=== PATIENT | male | born 1940 | race Caucasian/White ===

== ENCOUNTER → 2018-02-04 | Outpatient (CLI) | payer OTHER ==
[~2018-02-04] MED LIST: ACC10 PO; CRG25 PO; HYDC25 PO; NAPR1TAB9 PO; NXM/40 PO
--- NOTE | 2018-02-04 13:00 | DIAGNOSTIC IMAGING REPORT ---
BONE SCAN 3 PHASE LIMITED CLINICAL HISTORY: Pain and swelling status post total knee arthroplasty. COMPARISON STUDY: Left knee radiographs July 06, 2009. TECHNIQUE: 26.2 mCi of technetium 99m MDP was injected IV at 8:42 AM on February 04, 2018. Immediately following injection, blood flow images were obtained. Blood pool images were then obtained followed by 3 delayed phase imaging in multiple projections. FINDINGS: Slight asymmetric radiotracer uptake is noted adjacent to the left knee arthroplasty on the blood flow images with moderate asymmetric uptake on the blood pool images. Delayed phase images demonstrate moderate uptake along the proximal aspect of the tibial component of the left knee arthroplasty. Mild uptake is noted adjacent to the distal left femur and tibia. No additional sites of abnormal radiotracer uptake are noted. IMPRESSION: Abnormal 3 phase bone scan with evidence for slight hyperemia adjacent to the left knee arthroplasty with moderate uptake along the tibial component and mild uptake along the femoral component. Scintigraphic findings raise the possibility of loosening. An infectious process is within the differential although considered less likely given the slight degree of hyperemia. Electronically signed by: Alejandro Anderson M.D. 02/04/2018 12:58 PM Dictated Date/Time: 02/04/2018 12:54 PM
== END | disposition home or self-care (01) ==
LOC: C.NUCL 08:10
DX: Z96.659 Presence of unspecified artificial knee joint (principal); R93.7 Abnormal findings on diagnostic imaging of other parts of musculoskeletal system

== ENCOUNTER → 2018-02-08 | Outpatient (CLI) | payer OTHER ==
[2018-02-08 12:06] LABS: BASO % 0.4 %; BASO ABS # 0.03 K/uL (0-0.2); EOS % 4.1 %; HEMATOCRIT 37.4 % (42-52); HEMOGLOBIN 13.2 g/dL (14.0-18.0); IG# 0.01 K/uL (0.00-0.02); LYMPH % 21.9 %; LYMPH ABS # 1.59 K/uL (1.2-3.4); MEAN CELL VOLUME 91.7 fL (80-100); MEAN CORPUSCULAR HEMOGLOBIN 32.4 pg (25-34); MEAN CORPUSCULAR HGB CONC 35.3 g/dl (32-36); MEAN PLATELET VOLUME 9.6 fL (7.4-10.4); MONO % 9.1 %; MONO ABS # 0.66 K/uL (0.11-0.59); NEUT % 64.4 %; NEUT ABS # 4.67 K/uL (1.4-6.5); PLATELET COUNT 180 K/uL (130-400); RED CELL DISTRIBUTION WIDTH CV 13.2 % (11.5-14.5); RED CELL DISTRIBUTION WIDTH SD 44.6 fL (36.4-46.3); WHITE BLOOD COUNT 7.26 K/uL (4.8-10.8)
== END | disposition home or self-care (01) ==
LOC: C.LAB 11:31
DX: Z96.652 Presence of left artificial knee joint (principal)

== ENCOUNTER 2019-05-20 11:03 | Inpatient (IN) ==
[2019-05-20 12:05] LABS: Basophils # (auto) 0.02 K/uL (0-0.2); Basophils % (auto) 0.1 %; Hematocrit (blood only) 40.1 % (42-52); Immature Granulocytes # (auto) 0.06 K/uL (0.00-0.02); Immature Granulocytes % (auto) 0.3 %; Lymphocytes # (auto) 1.41 K/uL (1.2-3.4); Lymphocytes % (auto) 6.4 %; Mean Corpuscular Hemoglobin 32.6 pg (25-34); Mean Corpuscular Hgb Conc 34.9 g/dL (32-36); Mean Corpuscular Volume 93.5 fL (80-100); Mean Platelet Volume 9.4 fL (7.4-10.4); Monocytes # (auto) 1.84 K/uL (0.11-0.59); Monocytes % (auto) 8.4 %; Neutrophils # (auto) 18.66 K/uL (1.4-6.5); Neutrophils % (auto) 84.8 %; Platelet Count 164 K/uL (130-400); RDW Standard Deviation 47.8 fL (36.4-46.3); Red Blood Count 4.29 M/uL (4.7-6.1); White Blood Count 21.99 K/uL (4.8-10.8)
[2019-05-20] MEDS ORDERED: cefTRIAXone SODIUM 1,000 MG/50 ML BAG IV STA (12:11)
[2019-05-20] MEDS ORDERED: SODIUM CHLORIDE 0.9% 1000ML 1,000 ML IV ONE (12:11)
[2019-05-20 12:13] LABS: Albumin Level 3.6 gm/dl (3.4-5.0); BUN Creatinine Ratio 15.7 (10-20); Calcium 9.2 mg/dl (8.5-10.1); Creatinine Clr Calc Pharmacy 41.1 ml/min; Est GFR (African American) 54.4; Est GFR (Non-African American) 46.9; Potassium 3.3 mmol/L (3.5-5.1)
[2019-05-20 12:16] LABS: Albumin Globulin Ratio 0.9 (0.9-2); Bilirubin,Total 1.7 mg/dl (0.2-1); Total Protein 7.6 gm/dl (6.4-8.2)
[2019-05-20] MEDS ORDERED: IOVERSOL 100ml IV PRN (12:20)
--- NOTE | 2019-05-20 12:42 | CT Scan Report ---
CT abd pelvis IV con only CLINICAL HISTORY: lower abd pain COMPARISON STUDY: None. TECHNIQUE: The patient was scanned in a dynamic helical fashion during intravenous administration of 93 cc of Optiray 320. A dose lowering technique was utilized adhering to the principles of ALARA. CT DOSE: 568.10 mGy.cm FINDINGS: Lower chest: The heart is normal in size and configuration, without pericardial effusion. The lung ba ses and pleural spaces are clear. There are coronary artery calcifications Liver: The contrast-enhanced liver is normal in size, contour, and attenuation. There is no intrahepa tic biliary ductal dilatation. The hepatic veins and portal veins are patent. Gallbladder: Unremarkable. Spleen: Normal in size and attenuation. Pancreas: Unremarkable. Adrenal glands: Unremarkable. Kidneys: There is a to small to characterize 3 mm lower pole left renal hypodensity likely representi ng a cyst. There is no hydronephrosis. Bowel: There are no transition zones indicate bowel obstruction. The appendix appears normal. There i s no acute diverticulitis. Peritoneum: There is no intraperitoneal free air or abdominal ascites. Vasculature: The abdominal aorta is normal in course and caliber. Adenopathy: None. Pelvic viscera: The prostate is enlarged with areas of calcification. The bladder demonstrates wall t hickening likely secondary to chronic bladder outlet obstruction. There is a small fat-containing rig ht inguinal hernia. Skeletal structures: No destructive osseous lesions are seen. IMPRESSION: 1. No evidence of bowel obstruction. No evidence of free air 2. Normal appendix 3. No evidence of diverticulitis 4. Prostatomegaly and mild bladder wall thickening likely secondary to chronic bladder outlet obstruc tion 5. Small fat-containing right inguinal hernia Electronically signed by: Arvind Clemente M.D. 05/20/2019 12:40 PM
[2019-05-20 12:45] LABS: Appearance Urine Cloudy (Clear); Bacteria Urine Automated 1+ (Negative); Bilirubin Urine Negative (Negative); Blood Urine 3+ (Negative); Cast Urine Automated 0 /lpf (0-5); Color Urine Dark Yellow; Glucose Urine UA Negative (Negative); Ketones Urine Negative (Negative); Leukocyte Esterase Urine 2+ (Negative); Nitrite Urine Negative (Negative); Protein Urine 2+ (Negative); Urobilinogen Urine Negative (Negative); WBC Urine Automated >30 /hpf (0-5); pH Urine 6.5 (4.5-7.5)
--- NOTE | 2019-05-20 13:29 | History & Physical Report ---
Date of Service May 20, 2019 Assessment & Plan (1) Acute UTI: (2) Sepsis: -Admit to [facility] -Continue on IV fluids, NSS at 125 x 1 day -IV Rocephin, continue -WBC = 20 2K, trend with a.m. labs -Follow blood cultures and urine culture for sensitivities -Lactate 2.0 on arrival -History of UTI approximately 6 to 7 years ago, better p.o. hydration encouraged at bedside (3) KIMBERLY (acute kidney injury): -Creatinine = 1.43, BUN equals 23, likely up compared to baseline. Continue IV hydration as above -Trend a.m. PRP (4) Hypertension: -BP 127/73, patient reports he has taken his medication today including amlodipine 5 mg HS, carvedilol 25 mg p.o. BID and losartan-hydrochlorothiazide 1 tablet QAM-will continue for now, monitor BP -IV fluids on board (5) Hypokalemia: -Potassium = 3.3 on arrival, replace with p.o. 30 MEQ (6) DVT prophylaxis: -Teds, ambulatory CODE STATUS: DNR Disposition: Patient from home, likely to remain in the hospital x1 to 2 days, IV antibiotic History of Present Illness Primary Care Provider: Primo Estrada This is a 79 yo M with PMhx of HTN who presents with acute onset of fever at home which began yesterday. T-max = 102 F home and took some Tylenol for this. He began experiencing dysuria yesterday where he had increased burning with urination, increased frequency and use the restroom approximately 25 times per . He denies any chills or sweats. He reports that he does not take in water regularly, and prefers to drink coffee throughout the day. He has previous experience with a UTI approximately 6 to 7 years ago. WBC = 21.99, T-max = 37.6 Start IV Rocephin Allergies Allergy/AdvReac Type Severity Reaction Status Date / Time No Known Allergies Unverified 05/20/19 13:24 Home Medications Home Medications Medication Instructions Recorded Confirmed Type acetaminophen [Tylenol Extra 500 mg PO Q6H PRN 05/20/19 05/20/19 History Strength] amlodipine 5 mg PO HS 05/20/19 05/20/19 History carvedilol 25 mg PO BID 05/20/19 05/20/19 History losartan-hydrochlorothiazide 1 tab PO QAM 05/20/19 05/20/19 History pantoprazole 40 mg PO Q2D@0800 05/20/19 05/20/19 History Past Med/Surg History Medical History Hypertension Surgical History History of left knee replacement Family History Other No pertinent family history in first degree relatives Social History Preferred Language: [place] Communication Ability: Effective 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 Beliefs That Will Affect Care: None marital status: Current Living Situation: Spouse Other Information That Helps Us Care for You: No Feels Safe at Home: Yes Safety Concerns: Feels Safe At This Time Smoking Status: Never smoker Hx Alcohol Use: No Hx Substance Use: No Review of Systems Review of Systems: Constitutional: + Fever, + sweats no chills Eyes: No diplopia, no worsening or blurred vision ENT: normal hearing, no trouble swallowing Respiratory: No cough, sputum, dyspnea at rest or on exertion Cardiovascular: No chest pain, tightness or palpitations Abdomen: No pain, nausea, vomiting, diarrhea, + last bowel movement was 3 days ago, + constipation : + Dysuria, increased frequency, no hematuria Musculoskeletal: No joint pain, calf pain, swelling Neurologic: No weakness, numbness/tingling, or balance problems Psychiatric: No anxiety or depression Skin: No rash or itch Physical Exam Physical Exam: General: awake, alert, no apparent distress Head: Normocephalic, atraumatic ENT: PERRL, EOMI, no pharyngeal exudate, mucous membranes moist Chest: Clear to auscultation, on room air, no adventitious breath sounds Cardiac: Regular rate and rhythm, no murmur, no JVD, normal peripheral pulses, good capillary refill Abdominal: NABS x 4 quadrants, soft, nondistended, minimally tender to palpation in lower abdomen, no rebound, guarding or tenderness Extremities: Normal inspection, no peripheral edema or erythema, calfs nontender to palpation Psych: Normal mood and affect Neuro: AAO x 3, no gross motor deficits, speech is clear, no peripheral sensory deficits Skin: no rash or erythema Results & Data Vital Signs (Past 12 Hours) Vital Signs Temp Pulse Pulse Resp BP BP Pulse Ox 05/20/19 13:14 87 18 132/70 95 05/20/19 12:01 84 18 107/64 95 05/20/19 11:16 37.6 C H 84 20 131/[address] abd pelvis IV con only CLINICAL HISTORY: lower abd pain COMPARISON STUDY: None. TECHNIQUE: The patient was scanned in a dynamic helical fashion during intravenous administration of 93 cc of Optiray 320. A dose lowering technique was utilized adhering to the principles of ALARA. CT DOSE: 568.10 mGy.cm FINDINGS: Lower chest: The heart is normal in size and configuration, without pericardial effusion. The lung bases and pleural spaces are clear. There are coronary artery calcifications Liver: The contrast-enhanced liver is normal in size, contour, and attenuation. There is no intrahepatic biliary ductal dilatation. The hepatic veins and portal veins are patent. Gallbladder: Unremarkable. Spleen: Normal in size and attenuation. Pancreas: Unremarkable. Adrenal glands: Unremarkable. Kidneys: There is a to small to characterize 3 mm lower pole left renal hypodensity likely representing a cyst. There is no hydronephrosis. Bowel: There are no transition zones indicate bowel obstruction. The appendix appears normal. There is no acute diverticulitis. Peritoneum: There is no intraperitoneal free air or abdominal ascites. Vasculature: The abdominal aorta is normal in course and caliber. Adenopathy: None. Pelvic viscera: The prostate is enlarged with areas of calcification. The bladder demonstrates wall thickening likely secondary to chronic bladder outlet obstruction. There is a small fat-containing right inguinal hernia. Skeletal structures: No destructive osseous lesions are seen. IMPRESSION: 1. No evidence of bowel obstruction. No evidence of free air 2. Normal appendix 3. No evidence of diverticulitis 4. Prostatomegaly and mild bladder wall thickening likely secondary to chronic bladder outlet obstruction 5. Small fat-containing right inguinal hernia Code Status & VTE Plan Code Status DNR-discussed with the patient and at bedside Supervising Physician Co-Signing Physician Notes Patient seen and examined at bedside. During my face to face encounter, obtained a history and physical examination. I reviewed above note and agree with it. My history and physical examination did not differ. Patient reports having dysuria prior to admission. Patient states he has felt better now that antibiotics started. Awaiting cultures. will continue antibiotics for complicated UTI. PG Care Time/CCT Total # of Minutes Spent Total Time Spent with Patient: Total time spent is greater than 50% in coordination of care (as documented) at patient's floor/unit and/or counseling patient: (1) Sepsis Sepsis acute organ dysfunction status: without acute organ dysfunction Sepsis type: sepsis due to unspecified organism Qualified Code(s): A41.9 - Sepsis, unspecified organism
[2019-05-20] MEDS ORDERED: ONDANSETRON INJ 2 MG/ML 2 ML VIAL IV PRN (15:43)
[2019-05-20] MEDS ORDERED: POTASSIUM CHLORIDE 10 MEQ TABCR PO STA (15:43)
[2019-05-20] MEDS: SODIUM CHLORIDE 0.9% 1000ML 1,000 ML IV SCH ×2 (15:55→23:58)
[2019-05-20] MEDS: ACETAMINOPHEN 500 MG TAB PO PRN (17:06)
--- NOTE | 2019-05-20 18:22 | Emergency Department Note ---
Entered by Paty Ruth acting as a scribe for Harjeet Collins DO History of Present Illness General Chief complaint: Urinary Symptoms Stated complaint: BURNING WITH URINATION Source: patient History of Present Illness Onset (ago): day(s) 1 Location: abdomen Pain Consistency: + other (persistent ) Maximum Pain Intensity: 8 Quality: + other (burning with urination) Associated symptoms: + fever/chills and + other (positive increased frequency; decreased urine output; positive lower abdominal pain with urination; positive current lower abdominal pain; negative runny nose; negative diarrhea); no cough and no nausea/vomiting The patient is a 79 year old male with PMHx of left knee replacement and HTN who presents to the Emergency Room with complaints of persistent burning with urination that began 1 day prior to arrival. The patient states that during this time he has had increased frequency but states that he has decreased urine output each time he urinates. The patient reports lower abdominal pain with urination. He states that he has this abdominal pain currently. The patient reports a fever during this time, stating that his temperature was 101.8 degrees this morning. The patient denies cough, runny nose, nausea, vomiting, and diarrhea. Home Medications Home Medications Medication Instructions Recorded Confirmed Type acetaminophen [Tylenol Extra 500 mg PO Q6H PRN 05/20/19 05/20/19 History Strength] amlodipine 5 mg PO HS 05/20/19 05/20/19 History carvedilol 25 mg PO BID 05/20/19 05/20/19 History losartan-hydrochlorothiazide 1 tab PO QAM 05/20/19 05/20/19 History pantoprazole 40 mg PO Q2D@0800 05/20/19 05/20/19 History Allergies Allergy/AdvReac Type Severity Reaction Status Date / Time No Known Allergies Unverified 05/20/19 13:24 Past Med/Surg History Medical History Hypertension Surgical History History of left knee replacement Family History Other No pertinent family history in first degree relatives Social History Preferred Language: Bengali Communication Ability: Effective Airline Flight Attendant Required: No Beliefs That Will Affect Care: None Current Living Situation: Spouse Other Information That Helps Us Care for You: No Feels Safe at Home: Yes Safety Concerns: Feels Safe At This Time Smoking Status: Never smoker Hx Alcohol Use: No Hx Substance Use: No Review of Systems See HPI for pertinent positives & negatives. and A total of 10 systems reviewed and were otherwise negative Physical Exam Vital Signs Vital Signs - 24 hr 05/20/19 11:16 05/20/19 11:48 05/20/19 12:01 Temperature 37.6 C H Temperature Source Oral Pulse Rate 84 Pulse Rate [Right Finger] 84 Respiratory Rate 20 18 Respiratory Effort / Characteristics Non-Labored Spontaneous Non-Labored Respiratory Depth Normal Normal Respiratory Pattern Regular Blood Pressure 131/74 Blood Pressure [Right Arm] 107/64 Blood Pressure Mean 93 Blood Pressure Mean [Right Arm] 78 Blood Pressure Position Sitting Pulse Oximetry 92 95 Oxygen Delivery Method Room Air Room Air Room Air Sepsis Recent Fever Within 48 Hours Yes Sepsis New/Unexplained Change in Mental Status No Sepsis Action Taken by Nursing No Action Required 05/20/19 13:14 Temperature Temperature Source Pulse Rate Pulse Rate [Right Finger] 87 Respiratory Rate 18 Respiratory Effort / Characteristics Non-Labored Spontaneous Respiratory Depth Normal Respiratory Pattern Blood Pressure Blood Pressure [Right Arm] 132/70 Blood Pressure Mean Blood Pressure Mean [Right Arm] 90 Blood Pressure Position Pulse Oximetry 95 Oxygen Delivery Method Room Air Sepsis Recent Fever Within 48 Hours Sepsis New/Unexplained Change in Mental Status Sepsis Action Taken by Nursing GENERAL: Sitting up in bed, well-appearing, wearing hospital gown. EYE EXAM: normal conjunctiva OROPHARYNX: no exudate, no erythema, lips, buccal mucosa, and tongue normal and mucous membranes are moist NECK: supple, no nuchal rigidity, no adenopathy, non-tender LUNGS: Clear to auscultation. Normal chest wall mechanics HEART: no murmurs, S1 normal and S2 normal ABDOMEN: Minimal tenderness in the suprapubic region. Abdomen soft, normo-active bowel sounds, no masses, no rebound or guarding. BACK: Back is symmetrical on inspection and there is no deformity, no midline tenderness, no CVA tenderness. SKIN: no rashes and no bruising UPPER EXTREMITIES: upper extremities are grossly normal. LOWER EXTREMITIES: No pitting edema. NEURO EXAM: Normal sensorium, cranial nerves II-XII grossly intact, normal speech, no gross weakness of arms, no gross weakness of legs. Course Course ED COURSE: Vital signs were reviewed and showed normal. The patients medical record was reviewed The above diagnostic studies were performed and reviewed. ED treatments and interventions as stated above. 1156: The patient was evaluated in room C1B. A complete history and physical examination was performed. 1240: I checked on and updated the patient on all results. 1320: Upon reevaluation, the patient is resting comfortably. I discussed my findings with the patient and he understands and agrees with the treatment plan. Based on the patients age, coexisting illnesses, exam and lab findings the d ecision to treat as an inpatient was made. The patient remained stable while under my care. 1329: The patient will be evaluated for further management. I discussed the case with Enedelia Monique-[facility] SYLVAIN who accepts the patient for further evaluation under Dr. Velázquez-[facility] Hospitalist service. Administered Medications Acetaminophen (Tylenol) 500 mg PO Q6H PRN PRN Reason: Pain Stop: 06/19/19 15:42 Last Admin: 05/20/19 17:06 Dose: 500 mg Documented by: [id number] Sodium Chloride (Nss 1000ml) 1,000 mls @ 125 mls/hr IV .Q8H MARIZA Stop: 05/21/19 15:42 Last Admin: 05/20/19 15:55 Dose: 125 mls/hr Documented by: [id number] Ioversol (Optiray 320 100ml) 93 ml IV ONCE PRN PRN Reason: Interaction Checking Stop: 05/24/19 12:19 Last Admin: 05/20/19 12:21 Dose: 93 ml Documented by: [id number] Discontinued Medications Sodium Chloride (Nss 1000ml) 1,000 mls @ 999 mls/hr IV .Q1H1M ONE Stop: 05/20/19 13:11 Last Infusion: 05/20/19 14:31 Dose: 0 mls/hr Documented by: [id number] Admin: 05/20/19 13:12 Dose: 999 mls/hr Documented by: [id number] Ceftriaxone Sodium (Rocephin) 1,000 mg in 50 mls @ 100 mls/hr IV NOW STA Stop: 05/20/19 12:40 Last Infusion: 05/20/19 13:46 Dose: 0 mls/hr Documented by: [id number] Admin: 05/20/19 13:11 Dose: 100 mls/hr Documented by: [id number] Medical Decision Making Differential Diagnosis Differential diagnoses includes but is not limited to gastritis, peptic ulcer disease, GERD, gallbladder disease, pancreatitis, small bowel obstruction, acute coronary syndrome, pericarditis, ischemic bowel, irritable bowel disease, irritable bowel syndrome, appendicitis, diverticulitis, malignancy, hernia, urinary tract infection, torsion, perforation, trauma, infectious. Medical Records Attestation: I reviewed the patient's medical records. Home Medications Current Medication List: was personally reviewed by nd Laboratory Data Attestation: I reviewed the patient's lab results. Result diagrams: 05/20/19 11:40 05/20/19 11:40 Lab Results 05/20/19 05/20/19 05/20/19 Range/Units 11:30 11:40 11:40 WBC 21.99 H (4.8-10.8) K/uL RBC 4.29 L (4.7-6.1) M/uL Hgb 14.0 (14.0-18.0) g/dL Hct 40.1 L (42-52) % MCV 93.5 (80-100) fL MCH 32.6 (25-34) pg MCHC 34.9 (32-36) g/dL RDW Std Deviation 47.8 H (36.4-46.3) fL RDW Coeff of Alessandro 14.0 (11.5-14.5) % Plt Count 164 (130-400) K/uL MPV 9.4 (7.4-10.4) fL Immature Gran % (Auto) 0.3 % Neut % (Auto) 84.8 % Lymph % (Auto) 6.4 % [place] % (Auto) 8.4 % Eos % (Auto) 0.0 % Baso % (Auto) 0.1 % Immature Gran # (Auto) 0.06 H (0.00-0.02) K/uL Neut # (Auto) 18.66 H (1.4-6.5) K/uL Lymph # (Auto) 1.41 (1.2-3.4) K/uL [place] # (Auto) 1.84 H (0.11-0.59) K/uL Eos # (Auto) 0.00 (0-0.5) K/uL Baso # (Auto) 0.02 (0-0.2) K/uL Sodium 135 L (136-145) mmol/L Potassium 3.3 L (3.5-5.1) mmol/L Chloride 101 (98-107) mmol/L Carbon Dioxide 26 (21-32) mmol/L Anion Gap 8.0 (3-11) BUN 23 H (7-18) mg/dl Creatinine 1.43 H (0.6-1.4) mg/dl Est Cr Clr Drug Dosing 41.1 ml/min Est GFR ( Amer) 54.4 Est GFR (Non-Af Amer) 46.9 BUN/Creatinine Ratio 15.7 (10-20) Glucose 171 H (70-99) mg/dl Lactate (0.4-2.0) mmol/L Calcium 9.2 (8.5-10.1) mg/dl Total Bilirubin 1.7 H (0.2-1) mg/dl AST 18 (15-37) U/L ALT 20 (12-78) U/L Alkaline Phosphatase 93 (45-117) U/L Total Protein 7.6 (6.4-8.2) gm/dl Albumin 3.6 (3.4-5.0) gm/dl Globulin 4.0 (2.5-4.0) gm/dl Albumin/Globulin Ratio 0.9 (0.9-2) Urine Color Dark Yellow Urine Appearance Cloudy A (Clear) Urine pH 6.5 (4.5-7.5) Ur Specific Bryant 1.020 (1.000-1.030) Urine Protein 2+ H (Negative) Urine Glucose (UA) Negative (Negative) Urine Ketones Negative (Negative) Urine Blood 3+ H (Negative) Urine Nitrite Negative (Negative) Urine Bilirubin Negative (Negative) Urine Urobilinogen Negative (Negative) Ur Leukocyte Esterase 2+ H (Negative) Urine WBC (Auto) >30 H (0-5) /hpf Urine RBC (Auto) 10-30 H (0-4) /hpf U Hyaline Cast (Auto) 0 (0-5) /lpf U Epithel Cells (Auto) 5-10 H (0-5) /lpf Urine Bacteria (Auto) 1+ H (Negative) 05/20/19 Range/Units 12:57 WBC (4.8-10.8) K/uL RBC (4.7-6.1) M/uL Hgb (14.0-18.0) g/dL Hct (42-52) % MCV (80-100) fL MCH (25-34) pg MCHC (32-36) g/dL RDW Std Deviation (36.4-46.3) fL RDW Coeff of Alessandro (11.5-14.5) % Plt Count (130-400) K/uL MPV (7.4-10.4) fL Immature Gran % (Auto) % Neut % (Auto) % Lymph % (Auto) % [place] % (Auto) % Eos % (Auto) % Baso % (Auto) % Immature Gran # (Auto) (0.00-0.02) K/uL Neut # (Auto) (1.4-6.5) K/uL Lymph # (Auto) (1.2-3.4) K/uL [place] # (Auto) (0.11-0.59) K/uL Eos # (Auto) (0-0.5) K/uL Baso # (Auto) (0-0.2) K/uL Sodium (136-145) mmol/L Potassium (3.5-5.1) mmol/L Chloride (98-107) mmol/L Carbon Dioxide (21-32) mmol/L Anion Gap (3-11) BUN (7-18) mg/dl Creatinine (0.6-1.4) mg/dl Est Cr Clr Drug Dosing ml/min Est GFR ( Amer) Est GFR (Non-Af Amer) BUN/Creatinine Ratio (10-20) Glucose (70-99) mg/dl Lactate 2.0 (0.4-2.0) mmol/L Calcium (8.5-10.1) mg/dl Total Bilirubin (0.2-1) mg/dl AST (15-37) U/L ALT (12-78) U/L Alkaline Phosphatase (45-117) U/L Total Protein (6.4-8.2) gm/dl Albumin (3.4-5.0) gm/dl Globulin (2.5-4.0) gm/dl Albumin/Globulin Ratio (0.9-2) Urine Color Urine Appearance (Clear) Urine pH (4.5-7.5) Ur Specific Bryant (1.000-1.030) Urine Protein (Negative) Urine Glucose (UA) (Negative) Urine Ketones (Negative) Urine Blood (Negative) Urine Nitrite (Negative) Urine Bilirubin (Negative) Urine Urobilinogen (Negative) Ur Leukocyte Esterase (Negative) Urine WBC (Auto) (0-5) /hpf Urine RBC (Auto) (0-4) /hpf U Hyaline Cast (Auto) (0-5) /lpf U Epithel Cells (Auto) (0-5) /lpf Urine Bacteria (Auto) (Negative) Imaging Data Radiologist's Impression: Radiology results as stated below per my review and the radiologist's interpretation: CT abd pelvis IV con only CLINICAL HISTORY: lower abd pain COMPARISON STUDY: None. TECHNIQUE: The patient was scanned in a dynamic helical fashion during intravenous administration of 93 cc of Optiray 320. A dose lowering technique was utilized adhering to the principles of ALARA. CT DOSE: 568.10 mGy.cm FINDINGS: Lower chest: The heart is normal in size and configuration, without pericardial effusion. The lung bases and pleural spaces are clear. There are coronary artery calcifications Liver: The contrast-enhanced liver is normal in size, contour, and attenuation. There is no intrahepatic biliary ductal dilatation. The hepatic veins and portal veins are patent. Gallbladder: Unremarkable. Spleen: Normal in size and attenuation. Pancreas: Unremarkable. Adrenal glands: Unremarkable. Kidneys: There is a to small to characterize 3 mm lower pole left renal hypodensity likely representing a cyst. There is no hydronephrosis. Bowel: There are no transition zones indicate bowel obstruction. The appendix appears normal. There is no acute diverticulitis. Peritoneum: There is no intraperitoneal free air or abdominal ascites. Vasculature: The abdominal aorta is normal in course and caliber. Adenopathy: None. Pelvic viscera: The prostate is enlarged with areas of calcification. The bladder demonstrates wall thickening likely secondary to chronic bladder outlet obstruction. There is a small fat-containing right inguinal hernia. Skeletal structures: No destructive osseous lesions are seen. IMPRESSION: 1. No evidence of bowel obstruction. No evidence of free air 2. Normal appendix 3. No evidence of diverticulitis 4. Prostatomegaly and mild bladder wall thickening likely secondary to chronic bladder outlet obstruction 5. Small fat-containing right inguinal hernia Electronically signed by: Arvind Clemente M.D. 05/20/2019 12:40 PM Blood Pressure Blood Pressure Findings: Normal blood pressure MDM Narrative Patient is a 79-year-old fellow presents the ER for fevers for the past 24 hours associated with dysuria urgency and frequency. IV was was established. Labs show a leukocytosis of 22,000. No significant anemia. BMP with mild hypokalemia. Creatinine 1.43. Bilirubin slightly elevated at 1.7. Suprapubic abdominal pain. UA with leukocytes white cells and bacteria. Do believe this consistent with UTI. Patient was given IV fluids and IV Rocephin. Blood cultures were taken. CT abdomen pelvis showed no signs of Bari abscess or perforation. Patient was updated bedside discussed with the hospitalist admitted for further work-up. Impression & Plan Sepsis, Acute UTI Discharge Plan Visit Data *Final* Discharge Date/Time: 05/20/19 15:30 Chief Complaint: Urinary Symptoms Stated Complaint: BURNING WITH URINATION ED Provider: Harjeet Collins Discharge Problem: Sepsis, Acute UTI Patient Disposition: Admitted As Inpatient Discharge Instructions Interventions: ED Discharge Assessment Last Done: 05/20/19 15:30 Discharge Problem: Sepsis Qualifiers: Sepsis type: sepsis due to unspecified organism Sepsis acute organ dysfunction status: without acute organ dysfunction Qualified Code(s): A41.9 - Sepsis, unspecified organism The scribe's documentation has been prepared under my direction and personally reviewed by me in its entirety. I confirm that the note above accurately r eflects all work, treatment, procedures, and medical decision making performed by me.
[2019-05-20] MEDS: AMLODIPINE BESYLATE 5 MG TAB PO SCH (20:26)
[2019-05-20] MEDS: carvediloL 12.5 MG TAB PO SCH (20:26)
[2019-05-21 05:59] LABS: Hematocrit (blood only) 35.7 % (42-52); Hemoglobin 12.3 g/dL (14.0-18.0); Mean Corpuscular Hemoglobin 32.4 pg (25-34); Mean Corpuscular Hgb Conc 34.5 g/dL (32-36); Mean Corpuscular Volume 93.9 fL (80-100); Mean Platelet Volume 9.3 fL (7.4-10.4); Platelet Count 142 K/uL (130-400); RDW Coefficient of Variation 14.1 % (11.5-14.5); RDW Standard Deviation 48.1 fL (36.4-46.3); White Blood Count 16.66 K/uL (4.8-10.8)
[2019-05-21 06:31] LABS: Albumin Level 2.7 gm/dl (3.4-5.0); BUN Creatinine Ratio 14.7 (10-20); Calcium 8.5 mg/dl (8.5-10.1); Creatinine Clr Calc Pharmacy 44.9 ml/min; Est GFR (African American) 60.4; Est GFR (Non-African American) 52.1; Potassium 3.3 mmol/L (3.5-5.1)
[2019-05-21 06:39] LABS: Albumin Globulin Ratio 0.7 (0.9-2); Bilirubin,Total 0.9 mg/dl (0.2-1); Globulin 3.7 gm/dl (2.5-4.0); Total Protein 6.4 gm/dl (6.4-8.2)
[2019-05-21] MEDS: SODIUM CHLORIDE 0.9% 1000ML 1,000 ML IV SCH (08:06)
[2019-05-21] MEDS: carvediloL 12.5 MG TAB PO SCH ×2 (08:28→20:41)
[2019-05-21] MEDS: ACETAMINOPHEN 500 MG TAB PO PRN ×3 (08:30→23:07)
[2019-05-21] MEDS ORDERED: POTASSIUM CHLORIDE 20 MEQ TABCR PO STA (08:38)
[2019-05-21] MEDS: LOSARTAN POTASSIUM 50 MG TAB PO SCH (09:46)
[2019-05-21] MEDS: hydroCHLOROthiazide 25 MG TAB PO SCH (09:46)
[2019-05-21] MEDS: cefTRIAXone SODIUM 1,000 MG/50 ML BAG IV SCH (15:04)
[2019-05-21] MEDS: POTASSIUM CHLORIDE 20 MEQ TABCR PO SCH (20:42)
[2019-05-21] MEDS: AMLODIPINE BESYLATE 5 MG TAB PO SCH (20:42)
--- NOTE | 2019-05-21 21:21 | Hospitalist Progress Note ---
Date of Service May 21, 2019 Assessment & Plan (1) Acute UTI: (2) Sepsis: -Admit to [facility] -Continue on IV fluids, NSS at 125 x 1 day -IV Rocephin, continue -WBC = 20 2K, improved to 16.. will continue current antibitotics. Nos igns of abscess -Follow blood cultures and urine culture for sensitivities -Lactate 2.0 on arrival -History of UTI approximately 6 to 7 years ago, better p.o. hydration encouraged at bedside (3) KIMBERLY (acute kidney injury): -Creatinine = 1.43, BUN equals 23, likely up compared to baseline. Continue IV hydration as above -improved to 1.3 (4) Hypertension: -BP 127/73, patient reports he has taken his medication today including amlodipine 5 mg HS, carvedilol 25 mg p.o. BID and losartan-hydrochlorothiazide 1 tablet QAM-will continue for now, monitor BP -IV fluids on board (5) Hypokalemia: replace (6) DVT prophylaxis: -Teds, ambulatory CODE STATUS: DNR Disposition: Patient from home, likely to remain in the hospital x1 to 2 days, IV antibiotic (7) Bacteremia: prelim. positive for gram negative bacilli Subjective 79 YO M reports feeling better today. He reports he had an episode of dysuria yesterday, but this has improved. He also had an episode of fever yesterday. Patient denies feeling fatigued. Review of Systems Review of Systems: All systems reviewed & are unremarkable except as noted in HPI & below Physical Exam Physical Exam: General: awake, alert, no apparent distress Head: Normocephalic, atraumatic ENT: PERRL, EOMI, no pharyngeal exudate, mucous membranes moist Chest: Clear to auscultation, on room air, no adventitious breath sounds Cardiac: Regular rate and rhythm, no murmur, no JVD, normal peripheral pulses, good capillary refill Abdominal: NABS x 4 quadrants, soft, nondistended, minimally tender to palpation in lower abdomen, no rebound, guarding or tenderness Extremities: Normal inspection, no peripheral edema or erythema, calfs nontender to palpation Psych: Normal mood and affect Neuro: AAO x 3, no gross motor deficits, speech is clear, no peripheral sensory deficits Skin: no rash or erythema Results & Data Vital Signs (Past 12 Hours) Vital Signs Temp Pulse Resp BP BP Pulse Ox 12/07/19 20:34 80 123/66 05/21/19 16:58 37.0 C 05/21/19 15:51 38.4 C H 84 20 130/73 130/73 93 PG Care Time/CCT Total # of Minutes Spent Total Time Spent with Patient: Total time spent is greater than 50% in coordination of care (as documented) at patient's floor/unit and/or counseling patient: (1) Sepsis Sepsis acute organ dysfunction status: without acute organ dysfunction Sepsis type: sepsis due to unspecified organism Qualified Code(s): A41.9 - Sepsis, unspecified organism
[2019-05-22 05:49] LABS: Hematocrit (blood only) 37.5 % (42-52); Hemoglobin 13.2 g/dL (14.0-18.0); Mean Corpuscular Hemoglobin 32.6 pg (25-34); Mean Corpuscular Hgb Conc 35.2 g/dL (32-36); Mean Corpuscular Volume 92.6 fL (80-100); Mean Platelet Volume 9.3 fL (7.4-10.4); Platelet Count 136 K/uL (130-400); RDW Coefficient of Variation 13.9 % (11.5-14.5); RDW Standard Deviation 47.1 fL (36.4-46.3); Red Blood Count 4.05 M/uL (4.7-6.1); White Blood Count 7.43 K/uL (4.8-10.8)
[2019-05-22 06:26] LABS: Albumin Level 2.8 gm/dl (3.4-5.0); BUN Creatinine Ratio 12.9 (10-20); Calcium 9.2 mg/dl (8.5-10.1); Creatinine Clr Calc Pharmacy 46.7 ml/min; Est GFR (African American) 63.3; Est GFR (Non-African American) 54.7; Potassium 3.6 mmol/L (3.5-5.1)
[2019-05-22 06:29] LABS: Albumin Globulin Ratio 0.7 (0.9-2); Bilirubin,Total 0.6 mg/dl (0.2-1); Globulin 4.1 gm/dl (2.5-4.0); Total Protein 6.9 gm/dl (6.4-8.2)
[2019-05-22] MEDS: PANTOprazole 40 MG TAB PO SCH (07:49)
[2019-05-22] MEDS: ACETAMINOPHEN 500 MG TAB PO PRN ×3 (07:51→23:29)
[2019-05-22] MEDS: LOSARTAN POTASSIUM 50 MG TAB PO SCH (08:48)
[2019-05-22] MEDS: carvediloL 12.5 MG TAB PO SCH ×2 (08:50→21:23)
[2019-05-22] MEDS: hydroCHLOROthiazide 25 MG TAB PO SCH (08:51)
[2019-05-22] MEDS: POTASSIUM CHLORIDE 20 MEQ TABCR PO SCH ×2 (08:52→21:23)
[2019-05-22] MEDS: cefTRIAXone SODIUM 1,000 MG/50 ML BAG IV SCH (13:19)
[2019-05-22] MEDS ORDERED: PHENAZOPYRIDINE HCL 100 MG TAB PO PRN (13:30)
[2019-05-22] MEDS: AMLODIPINE BESYLATE 5 MG TAB PO SCH (21:23)
--- NOTE | 2019-05-22 21:53 | Hospitalist Progress Note ---
Date of Service May 22, 2019 Assessment & Plan (1) Acute UTI: (2) Sepsis: -Admit to [facility] -Continue on IV fluids, NSS at 125 x 1 day -IV Rocephin, continue -WBC = 20 2K, improved to normal range. will continue current antibitotics. Nos signs of renal abscess on admission. -Follow blood cultures and urine culture for sensitivities: pansensitive e. coli. -Lactate 2.0 on arrival -History of UTI approximately 6 to 7 years ago, better p.o. hydration encouraged at bedside -still with fevers, hoping for 24 hours of fever free before discharge. Likely discharge on 05/23. (3) KIMBERLY (acute kidney injury): -Creatinine = 1.43, BUN equals 23, likely up compared to baseline. Continue IV hydration as above -improved to 1.3 (4) Hypertension: resumed home meds. bp at goal. -IV fluids on board (5) Hypokalemia: replace (6) DVT prophylaxis: -Teds, ambulatory CODE STATUS: DNR Disposition: Patient from home, likely to remain in the hospital x1 to 2 days, IV antibiotic (7) Bacteremia: E. coi pansensitive Subjective Patient had an episode of fever last night. Patient today feels fine, still has some dysuria. But no general malaise. Review of Systems Review of Systems: Constitutional: + Fever, + sweats no chills Eyes: No diplopia, no worsening or blurred vision ENT: normal hearing, no trouble swallowing Respiratory: No cough, sputum, dyspnea at rest or on exertion Cardiovascular: No chest pain, tightness or palpitations Abdomen: No pain, nausea, vomiting, diarrhea, + last bowel movement was 3 days ago, + constipation : + Dysuria, increased frequency, no hematuria Musculoskeletal: No joint pain, calf pain, swelling Neurologic: No weakness, numbness/tingling, or balance problems Psychiatric: No anxiety or depression Skin: No rash or itch Physical Exam Physical Exam: General: awake, alert, no apparent distress Head: Normocephalic, atraumatic ENT: PERRL, EOMI, no pharyngeal exudate, mucous membranes moist Chest: Clear to auscultation, on room air, no adventitious breath sounds Cardiac: Regular rate and rhythm, no murmur, no JVD, normal peripheral pulses, good capillary refill Abdominal: NABS x 4 quadrants, soft, nondistended, minimally tender to palpation in lower abdomen, no rebound, guarding or tenderness Extremities: Normal inspection, no peripheral edema or erythema, calfs nontender to palpation Psych: Normal mood and affect Neuro: AAO x 3, no gross motor deficits, speech is clear, no peripheral sensory deficits Skin: no rash or erythema Results & Data Vital Signs (Past 12 Hours) Vital Signs Temp Pulse Resp BP Pulse Ox 05/22/19 15:19 37.9 C H 82 20 134/70 95 PG Care Time/CCT Total # of Minutes Spent Total Time Spent with Patient: Total time spent is greater than 50% in coordination of care (as documented) at patient's floor/unit and/or counseling patient: (1) Sepsis Sepsis acute organ dysfunction status: without acute organ dysfunction Sepsis type: sepsis due to unspecified organism Qualified Code(s): A41.9 - Sepsis, unspecified organism
[2019-05-23 05:50] LABS: Hematocrit (blood only) 36.8 % (42-52); Hemoglobin 13.1 g/dL (14.0-18.0); Mean Corpuscular Hemoglobin 32.8 pg (25-34); Mean Corpuscular Hgb Conc 35.6 g/dL (32-36); Mean Platelet Volume 9.5 fL (7.4-10.4); Platelet Count 137 K/uL (130-400); RDW Coefficient of Variation 13.7 % (11.5-14.5); RDW Standard Deviation 46.4 fL (36.4-46.3); White Blood Count 5.37 K/uL (4.8-10.8)
[2019-05-23 06:09] LABS: Albumin Level 2.7 gm/dl (3.4-5.0); BUN Creatinine Ratio 14.7 (10-20); Creatinine Clr Calc Pharmacy 50.6 ml/min; Est GFR (African American) 70.7; Potassium 3.8 mmol/L (3.5-5.1)
[2019-05-23 06:12] LABS: Albumin Globulin Ratio 0.7 (0.9-2); Bilirubin,Total 0.5 mg/dl (0.2-1); Globulin 4.1 gm/dl (2.5-4.0); Total Protein 6.8 gm/dl (6.4-8.2)
[2019-05-23] MEDS: hydroCHLOROthiazide 25 MG TAB PO SCH (07:40)
[2019-05-23] MEDS: POTASSIUM CHLORIDE 20 MEQ TABCR PO SCH (07:40)
[2019-05-23] MEDS: carvediloL 12.5 MG TAB PO SCH ×2 (07:40→21:24)
[2019-05-23] MEDS: LOSARTAN POTASSIUM 50 MG TAB PO SCH (07:41)
[2019-05-23] MEDS ORDERED: TAMSULOSIN HCL 0.4 MG CAP PO SCH (09:00)
[2019-05-23 10:20] LABS: Estimated Average Glucose 134 mg/dl; Hemoglobin A1C 6.3 % (4.5-5.6)
[2019-05-23] MEDS: cefTRIAXone SODIUM 2,000 MG in DEXTROSE 5% 50 ML IV SCH (14:53)
--- NOTE | 2019-05-23 15:45 | Hospitalist Progress Note ---
Date of Service May 23, 2019 Assessment & Plan (1) E. coli bacteremia: Suggestive of prostatitis as source instead of uncomplicated UTI. No back pain or CT findings to suggest pyelonephritis. Prostatomegaly on CT without mild bladder wall thickening and no significant history of LUTS also fits with this diagnosis. Given ongoing fevers yesterday will repeat blood cultures to make sure infection has cleared. If no fevers in the next 24 hours suspect he can be safely discharged home with bactrim for 4 week course. (2) Acute UTI: as above. Suspect initial infection started off as UTI but given bacteremic assumption has to be acute bacterial prostatitis (3) Sepsis: I believe this was diagnosed on basis of fever with elevated WBC therefore meeting SIRS criteria with source of acute bacterial prostatitis. Now resolved. (4) KIMBERLY (acute kidney injury): Given baseline 1.15 at present there was no KIMBERLY on admission has been ruled out at this point. (5) Hypertension: Low normal BP. Will discontinue HCTZ and amlodipine at this time. Continue losartan and carvedilol (6) Hypokalemia: Supplementation discontinued. Suspect now off HCTZ may be improve without supplementation. (7) DVT prophylaxis: -SCDs, encourage ambulation CODE STATUS: DNR Disposition: Plan for home on discharge Subjective Patient seen in afternoon. Lying in bed. Feels well. No further fevers or chills since yesterday. Still having mild burning sensation on urination. No back tenderness, no pain on bowel movements. No prior problems with his prostate before this occasion. Usually wakes once/night to urinate. Good stream, no straining or terminal dribbling. Doesn't know if he has had a prior PSA level. No history of nephrolithiasis. Review of Systems Review of Systems: All systems reviewed & are unremarkable except as noted in HPI & below Physical Exam Constitutional: WD/WN, vitals as above Eyes: + anicteric sclerae; normal pupil size ENMT: external ear and nose normal, oropharynx normal Neck: trachea midline Respiratory: normal respiratory effort, lungs clear to auscultation Cardiovascular: Rate/Rhythm: regular rate and regular rhythm Heart Sounds: normal S1 and normal S2; no murmur Extremities: normal capillary refill; no pedal edema Gastrointestinal (Abdomen): normal bowel sounds, soft, nontender, no hepatosplenomegaly Musculoskeletal: no cyanosis or clubbing, extremities motor strength 5/5 Skin: no rashes, warm and dry Neurologic: moves all extremities and awake; no focal motor deficits and not confused Motor/Sensory: no tremor Psychiatric: A+Ox3, euthymic affect Genitourinary: no CVA tenderness Results & Data Vital Signs (Past 12 Hours) Vital Signs Temp Pulse Resp BP Pulse Ox 05/23/19 15:42 99.1 F 75 18 116/70 94 05/23/19 07:17 98.4 F 70 17 111/61 99 05/23/19 04:01 98.2 F PG Care Time/CCT Total # of Minutes Spent Total Time Spent with Patient: Total time spent is greater than 50% in coordination of care (as documented) at patient's floor/unit and/or counseling patient: (1) Sepsis Sepsis acute organ dysfunction status: without acute organ dysfunction Sepsis type: sepsis due to unspecified organism Qualified Code(s): A41.9 - Sepsis, unspecified organism (2) Hypertension Hypertension type: essential hypertension Qualified Code(s): I10 - Essential (primary) hypertension
[2019-05-24 06:44] LABS: BUN Creatinine Ratio 14.8 (10-20); Calcium 9.1 mg/dl (8.5-10.1); Creatinine Clr Calc Pharmacy 45.8 ml/min; Est GFR (African American) 62.7; Est GFR (Non-African American) 54.1; Potassium 3.6 mmol/L (3.5-5.1)
[2019-05-24 06:46] LABS: Albumin Globulin Ratio 0.7 (0.9-2); Bilirubin,Total 0.5 mg/dl (0.2-1); Globulin 4.1 gm/dl (2.5-4.0); Total Protein 7.1 gm/dl (6.4-8.2)
[2019-05-24] MEDS: carvediloL 12.5 MG TAB PO SCH (07:53)
[2019-05-24] MEDS: PANTOprazole 40 MG TAB PO SCH (07:54)
[2019-05-24] MEDS: LOSARTAN POTASSIUM 50 MG TAB PO SCH (07:54)
[2019-05-24] MEDS ORDERED: LACTOBACILLUS ACIDOPHILUS (FLORANEX) TAB PO SCH (12:00)
--- NOTE | 2019-05-24 14:10 | Discharge Summary ---
Date of Service May 24, 2019 Admission HPI Per Admitting Provider This is a 79 yo M with PMhx of HTN who presents with acute onset of fever at home which began yesterday. T-max = 102 F home and took some Tylenol for this. He began experiencing dysuria yesterday where he had increased burning with urination, increased frequency and use the restroom approximately 25 times per . He denies any chills or sweats. He reports that he does not take in water regularly, and prefers to drink coffee throughout the day. He has previous experience with a UTI approximately 6 to 7 years ago. WBC = 21.99, T-max = 37.6 Start IV Rocephin Discharge Data Allergies Allergy/AdvReac Type Severity Reaction Status Date / Time No Known Allergies Unverified 05/20/19 13:24 Consultations 05/20/19 13:28 ED Decision to Admit Stat 05/20/19 15:43 Consult Case Management - Discharge Planning Routine Ordered Studies 05/20/19 12:11 CT abd pelvis IV con only Stat Hospital Course (1) E. coli bacteremia: Suggestive of prostatitis as source instead of uncomplicated UTI. No back pain or CT findings to suggest pyelonephritis. Prostatomegaly on CT without mild bladder wall thickening and no significant history of LUTS also fits with this diagnosis. Given ongoing fevers yesterday will repeat blood cultures to make sure infection has cleared. If no fevers in the next 24 hours suspect he can be safely discharged home with bactrim for 4 week course. (2) Acute UTI: as above. Suspect initial infection started off as UTI but given bacteremic assumption has to be acute bacterial prostatitis (3) Sepsis: I believe this was diagnosed on basis of fever with elevated WBC therefore meeting SIRS criteria with source of acute bacterial prostatitis. Now resolved. (4) KIMBERLY (acute kidney injury): Given baseline 1.15 at present there was no KIMBERLY on admission has been ruled out at this point. (5) Hypertension: Low normal BP. Will discontinue HCTZ and amlodipine at this time. Continue losartan and carvedilol (6) Hypokalemia: Supplementation discontinued. Suspect now off HCTZ may be improve without supplementation. (7) DVT prophylaxis: -SCDs, encourage ambulation CODE STATUS: DNR Disposition: Plan for home on discharge Discharge Plan Discharge Items Patient Disposition: Home - Self-Care Reason For Visit: UTI Discharge Diagnosis: Acute bacterial prostatitis E. coli bacteremia Sepsis Activity: Resume your previous activity Non-emergency contact: Primary Care Provider Call non-emergency contact if: you have any medication questions, your symptoms worsen and your temperature is above 101 Follow-up/Referrals: Primo Estrada [Primary Care Provider] - Diet: Regular Addtl Attending Provider Instructions: You were admitted to [facility] from May 20 to for fevers, painful urination and urinary frequency. Blood and urine cultures were subsequently positive for E. coli. Given enlarged prostate on CT and no back pain to suggest kidney infection (pyelonephritis) suspect this represents an acute bacterial prostatitis. No prostate exam was performed to avoid worsening of the infection. No urinary retention noted on bladder scan. Given the severity of the infection recommend treatment for 4 weeks as prescribed below, recommend taking probiotics during this time to avoid antibiotic associated diarrhea. Pl ease return to the ER if you have continuing fevers > 101 degrees Fahrenheit. Of note two of your blood pressure medication have been discontinued/changed due to low blood pressures during admission. This may be due to your acute illness and recommend following up with your primary care physician as these may need to be restarted. In addition you were noted to have elevated glucose levels and subsequent HbA1C of 6.3. This shows you are at risk of developing diabetes. No medications were started for this at this time but recommend following up with your primary care provider and reducing sugar and other fast acting carbohydrates from your diet. Kind regards, Dr Ty Izaguirre Pending Studies at Discharge: Yes (Follow up blood cultures from 05/23, negative at 24 hours) Stand-Alone Forms: My [facility], Smoking Cessation Medications and DC Order Prescriptions: New Lactobacillus acidoph-L.bulgar [Floranex] 1 million cell Tablet 4 tab PO QIDM 24 Days Qty: 384 RF: 0 sulfamethoxazole-trimethoprim [Bactrim DS] 800-160 mg tablet 1 tab PO BID 24 Days Qty: 48 RF: 0 losartan 100 mg tablet 100 mg PO DAILY Qty: 30 RF: 0 Continued carvedilol 25 mg tablet 25 mg PO BID RF: 0 acetaminophen [Tylenol Extra Strength] 500 mg Tablet 500 mg PO Q6H PRN (Reason: Pain) RF: 0 pantoprazole 40 mg tablet,delayed release (DR/EC) 40 mg PO Q2D@0800 RF: 0 Discontinued amlodipine 5 mg tablet 5 mg PO HS RF: 0 losartan-hydrochlorothiazide 100-12.5 mg tablet 1 tab PO QAM RF: 0 Discharge Orders: Discharge Order (Routine); Ordered 05/24/19 Ordered By: Ty Lovell/Other Patient Handouts: Prediabetes, Diabetes Healthy Meals, Prostatitis Bacterial, Diabetes Exercise Benefits, A1C Admission Data Admit Date/Time: 05/20/19 13:45 Attending Provider: Ty Izaguirre Admit Provider: Stew Velázquez Primary Care Provider: Primo Estrada Other Providers: Stew Velázquez
[2019-05-24] MEDS: cefTRIAXone SODIUM 2,000 MG in DEXTROSE 5% 50 ML IV SCH (14:27)
== END 2019-05-24 15:30 | disposition home or self-care (01) | DRG 872 ==
LOC: ED 11:03 → SUATTDRO 13:45 → 4W 13:45